=== PATIENT | female | born 1960 | race Caucasian/White ===

== ENCOUNTER 2017-05-10 00:33 | Inpatient (IN) | payer BC ==
[~2017-05-10] VITALS: Ht 170.2 cm; Wt 112.5 kg
[2017-05-10 00:38] VITALS: BP_SYST 136
[2017-05-10] MEDS ORDERED: NACL 0.9% 1,000 ML IV ONE ×2 (01:27→01:32)
[2017-05-10] MEDS ORDERED: DIPHENHYDRAMINE INJ 50 MG/ML VIAL IVP ONE (01:30)
[2017-05-10] MEDS ORDERED: ONDANSETRON HCL 4 MG/2 ML VIAL IVP ONE (01:30)
[2017-05-10] MEDS ORDERED: MORPHINE 4 MG/ML INJ. SYRINGE IVP ONE (01:30)
[2017-05-10 02:26] LABS: BASOPHILS # (AUTO) 0.1 K/uL (0.0-0.2); BASOPHILS % (AUTO) 0.8 % (0.0-2.0); EOSINOPHILS # (AUTO) 0.2 K/uL (0.0-0.4); EOSINOPHILS % (AUTO) 1.9 % (0.0-4.0); HEMATOCRIT 39.8 % (36-48); LYMPHOCYTES # (AUTO) 1.7 K/uL (1.0-5.5); LYMPHOCYTES % (AUTO) 16.7 % (20.5-51.5); MEAN CORPUSCULAR HEMOGLOBIN 29 pg (27-31); MEAN CORPUSCULAR HGB CONC 33 % (32-36); MEAN CORPUSCULAR VOLUME 89 fL (79.0-98.0); MONOCYTES # (AUTO) 0.7 K/uL (0.0-1.0); MONOCYTES % (AUTO) 6.8 % (1.7-9.3); NEUTROPHILS # (AUTO) 7.4 K/uL (1.8-7.7); NEUTROPHILS % (AUTO) 73.8 % (40.0-70.0); PLATELET COUNT (AUTO) 225 K/uL (130-430); RED BLOOD CELL COUNT(AUTO) 4.47 MIL/uL (4.2-6.2); RED CELL DISTRIBUTION WIDTH 13.5 % (9.0-15.0); WHITE BLOOD COUNT (AUTO) 10.1 K/uL (4.8-10.8)
[2017-05-10] MEDS ORDERED: MAG-AL HYDROX/SIMETH 30 ML UDC PO ONE ×2 (02:30→03:15)
[2017-05-10] MEDS ORDERED: PANTOPRAZOLE SODIUM 40 MG/VIAL (PROTONIX) IVP ONE (02:30)
[2017-05-10 02:34] LABS: CALCIUM 9.1 mg/dL (8.4-11.0); CREATININE 0.95 mg/dL (0.55-1.30); POTASSIUM 4.1 mmol/L (3.5-5.1)
[2017-05-10 02:35] LABS: PROTHROMBIN TIME 10.2 SECS (9.5-12.5)
[2017-05-10 02:38] LABS: ALBUMIN 3.8 g/dL (3.4-4.8)
[2017-05-10] MEDS ORDERED: LIDOCAINE VISCOUS 2%, 15 ML UDC MM ONE (03:15)
[2017-05-10] MEDS ORDERED: MORPHINE 4 MG/ML INJ. SYRINGE IVP PRN (03:45)
[2017-05-10] MEDS ORDERED: ONDANSETRON HCL 4 MG/2 ML VIAL IVP PRN (03:45)
[2017-05-10 04:16] VITALS: BP_SYST 121
[2017-05-10] MEDS: D5/0.45 NS 1,000 ML IV SCH ×2 (04:53→16:44)
[2017-05-10 08:15] VITALS: BP_SYST 124
[2017-05-10] MEDS ORDERED: GASTROGRAFIN 120 ML ONE (08:34)
[2017-05-10 09:21] LABS: BILIRUBIN,URINE NEGATIVE (NEGATIVE); CLARITY/URINE SL HAZY (CLEAR); COLOR,URINE YELLOW (YELLOW); GLUCOSE,URINE NEGATIVE (NEGATIVE); KETONES,URINE NEGATIVE (NEGATIVE); LEUKOCYTE ESTERASE ,URINE TRACE (NEGATIVE); NITRITE, URINE NEGATIVE (NEGATIVE); PROTEIN URINE NEGATIVE (NEGATIVE)
[2017-05-10 09:24] LABS: BLOOD, URINE TRACE (NEGATIVE)
[2017-05-10 09:29] LABS: BACTERIA,URINE FEW /HPF (None Seen); MUCUS,URINE 1+ /LPF (None Seen)
[2017-05-10 12:39] VITALS: BP_SYST 119
[2017-05-10 16:10] VITALS: BP_SYST 116
[2017-05-10 20:00] VITALS: BP_SYST 122
[2017-05-11 00:22] VITALS: BP_SYST 118
[2017-05-11 03:40] VITALS: BP_SYST 115
[2017-05-11] MEDS: D5/0.45 NS 1,000 ML IV SCH (05:54)
[2017-05-11 08:16] VITALS: BP_SYST 143
[2017-05-11] MEDS ORDERED: ACETAMINOPHEN 500 MG TABLET PO ONE (11:30)
[2017-05-11 12:26] VITALS: BP_SYST 132
[2017-05-11 12:51] VITALS: BP_SYST 136
== END 2017-05-11 13:00 | disposition home or self-care (01) | DRG 390 ==
LOC: SED 00:33 → SMU 03:39
PROVIDERS: ADMIT Family Medicine; ATTEND Family Medicine
DX: K56.600 Partial intestinal obstruction, unspecified as to cause (principal); E66.01 Morbid (severe) obesity due to excess calories; Z68.38 Body mass index [BMI] 38.0-38.9, adult; Z80.0 Family history of malignant neoplasm of digestive organs; Z85.850 Personal history of malignant neoplasm of thyroid; Z90.49 Acquired absence of other specified parts of digestive tract; Z98.84 Bariatric surgery status
CPT/HCPCS: 36415; 74250-TC; 80053; 81000-TC; 83690-TC; 83880; 84484; 85025; 85610-TC; 85730-TC; 87086; 96361; 96374; 96375; 99285; C9113; J1200; J2001; J2270; J2405; J7030; Q9963